=== PATIENT | male | born 1960 | race Caucasian/White ===

== ENCOUNTER → 2018-10-05 | Day surgery (SDC) | payer OTHER ==
[~2018-10-05] MED LIST: AMARYL; BENICAR40 MG; COREG25 MG PO; GLIMEPIRIDE PO; GLUCOPHAGE1000 MG PO; GLUMETZA500; LOSARTAN-HCTZ1 EAC3 PO; NORCO 5-325 TA1 EACH PO; PERCOCET 5-3251 EACH PO; TRICOR145 MG
[2018-10-05 13:54] LABS: CALCIUM 8.9 mg/dL (8.5-10.1); CREATININE 0.8 mg/dL (0.6-1.3); POTASSIUM 3.6 mmol/L (3.5-5.1)
--- NOTE | 2018-10-05 14:52 | EKG ---
[place] [address] ELECTROCARDIOGRAM REPORT Name: MILI LOU MORA Room: [facility]#: [id number] Admission: 10/05/18 Attend Phys: Merle Lala DO Discharge: Date of : 62 Report #: [id number] THIS REPORT FOR: //name// 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
--- NOTE | 2018-10-09 08:10 | OP ---
[address] [address] OPERATIVE REPORT Name: MILI LOU Room: [facility]..#: [id number] Admission: 10/05/18 Attend Phys: Merle Lala DO Discharge: Date of : 62 Report #: [id number] THIS REPORT FOR: //name// CC: Merle Cramer DATE OF SERVICE: 10/05/2018 PREPROCEDURE DIAGNOSIS: Right axillary lymphadenopathy. POSTPROCEDURE DIAGNOSIS: Right axillary lymphadenopathy. FINDINGS: Multiple large lymph nodes in the right axilla. One large lymph node was completely excised and it was approximately 5 x 3 cm. SURGEON: Merle Lala DO COSURGEON: Billy Saeed, PGY-2. INSTRUMENT TECHNOLOGIST: Cindi Valencia, PGY-1. PROCEDURE PERFORMED: Excisional biopsy, right axillary lymph node. ANESTHESIA: LMA and local. ESTIMATED BLOOD LOSS: 5. DRAINS: None. SPECIMENS: Right axillary lymph node, which was sent for fresh cultures and permanent. COMPLICATIONS: None. CONDITION: Stable. DISPOSITION: PACU to home. HISTORY OF PRESENT ILLNESS: The patient is a very pleasant 58-year-old gentleman who presented to my office with palpable right axillary lymphadenopathy. He had undergone an ultrasound, which showed multiple enlarged lymph nodes in the right axilla, the largest of which measured 5 cm. On my physical exam, I was also concerned that I could feel left axillary lymphadenopathy and possible cervical and supraclavicular lymph nodes. He denied any symptoms of night sweats, fevers or any other complaints. He was then consented for excisional biopsy of the right [place]illary [place] [address] OPERATIVE REPORT Name: MILI LOU Room: [facility]..#: [id number] Admission: 10/05/18 Attend Phys: Merle Lala DO Discharge: Date of : 62 Report #: [id number] discussed included bleeding, infection, pain, scar formation, injury to nerve, artery or vein in the area causing chronic pain, numbness or swelling, need for further surgery and risks of general anesthesia. The patient understood these risks and elected to proceed. DESCRIPTION OF PROCEDURE: The patient was brought to the operating room. He was laid supine on the operating room table. SCDs were placed on bilateral lower extremities. Ancef was given in the perioperative period. General LMA anesthesia was induced by anesthesia without difficulty. Right axilla and chest were prepped and draped in standard sterile fashion. Timeout was performed to verify patient and procedure. A 10 mL of 0.5% Marcaine were injected in the area of the planned incision. Incision was made with #15 blade. Cautery was used for hemostasis. We then gently dissected down into the right axilla using a combination of blunt and cautery dissection. A self-retaining Weitlaner retractor was placed within the wound. The pectoralis was gently retracted using an [facility]. A very large lymph node was immediately palpable just under the clavipectoral fascia. The fat surrounding the lymph node was gently elevated and the lymph node was dissected free from the surrounding tissue using blunt and cautery dissection. Once it was completely excised, it was then cut into several pieces for pathology. A small portion was sent for PMI. Larger portion was sent for cultures including fungal, Mycobacterium, aerobic and anaerobic and the remainder was sent for permanent pathology. Hemostasis was assured with our wound. The wound was then closed in a layered fashion using deep and superficial stitches of 3-0 Vicryl in inverted interrupted fashion. Skin wound was closed with a running 4-0 Monocryl. A total of 30 mL of 0.5% Marcaine were used to anesthetize the wound. Wound was then cleansed and covered with Mastisol, Steri-Strips, 4 x 4's, and a Tegaderm. The patient was then allowed to awaken from anesthesia, was extubated and transported to the recovery room with no further difficulties. Counts were correct x 2 at the conclusion of the case. <ELECTRONICALLY SIGNED> By: Merle Lala DO 10/09/18 0810 1709 [id number] Lala DO /nt
--- NOTE | 2018-10-11 13:09 | PATH ---
[address] [address] PATHOLOGY RPT PROCEDURE Name: MILI LOU Room: [facility] M.R.#: [id number] Admission: 10/05/18 Date of : 62 Discharge: Report #: [id number] Path Case #: [id number] [facility] Accession Number: [id number] . 01 Material submitted: . PERMANENT RIGHT AXILLARY LYMPH NODE . 01 Clinical history: . Pre-op diagnosis: Axillary mass Post-op diagnosis: Right axillary lymph node . 02 Diagnosis: Right axillary lymph node: - Benign lymph node with mild hyperplasia and marked fatty infiltration of hilum. See comment. (RADHA:johnny; 10/10/2018) . . Please see included Integrated Oncology report [id number]. AZJ/10/10/2018 . 02 Comment: Flow cytometry (see attached report) supports the diagnosis. Reviewed with Dr. Lico Blackburn (hematopathologist) who agrees with the diagnosis. (RADHA:johnny; 10/10/2018) . 02 Electronically signed: . Kd Marquez MD, Pathologist NPI- [id number] . 01 Gross description: . The specimen is received in formalin, labeled "Susan Mishra lymph node". Received is a segment of yellow-cespedes lobulated tissue measuring 3.1 x 2.3 x 1.7 cm in greatest dimensions. Dissection and palpation of the specimen reveals a single fatty replaced lymph node measuring approximately 2.3 cm in maximum dimensions. A portion of the specimen is received in RPMI solution and is forwarded on for flow cytometry studies. Electrical Automation Engineer sections are submitted in cassettes A1 and A2. (CAA; 10/08/2018) QAC/QAC . 02 Microscopic: . Special studies report received from [facility], [address] [place] [address], [facility] [address], [place], [place], Formerly named [facility], on case [id number], labeled with their number [id number], dated 10/09/2018. . Flow Cytometry: Hematologic [place] [address] PATHOLOGY RPT PROCEDURE Name: MILI LOU Room: [facility].R.#: [id number] Admission: 10/05/18 Date of : 62 Discharge: Report #: [id number] Path Case #: [id number] Clinical History Axillary Mass . Indication for Study Evaluation for hematolymphoid neoplasia . Specimen Lymph Node, Right Axillary . Viability 65% (7AAD exclusion) . Interpretation Lymph Node, Right Axillary: - No evidence of a B-cell or a T-cell lymphoma. See comments. - The CD4:CD8 ratio is elevated at 19:1. . Comments Increased CD4:CD8 ratios may result from various CD4+ predominant T-cell hyperplasia such as paracortical T-cell lymphoid hyperplasia and in granulomatous/histiocytic reactions, as well as some T-cell lymphoproliferative disorders or Hodgkin lymphoma. No aberrant T-cell immunophenotype or lincoln-T-cell deletion is identified in this case. The morphologic findings are more relevant than the sole flow cytometric finding of an elevated CD4/CD8 ratio. . Results should be interpreted with caution due to reduced viability of the specimen (65%). . Populations Analyzed Lymphocytes: 51% B-cells: 28.5%, polytypic/polyclonal sIg light chain pattern T-cells: no significant abnormalities of the markers tested CD4:CD8: 19.1 NK cells: 0.9% Granulocytes: 2% Present CD45 Negative 46% No significant reactivity with the markers tested Events/Debris: (may represent degenerated cells, unlysed red blood cells, debris, etc.) . Morphologic Evaluation A slide was reviewed for fiberglass quality technician purposes only. . Specimen Description Cell Yield: 0.26 X 10 and 6 Due to a low cellular viability, an average of 2,350 viable events were acquired per tube. Flow cytometry data derived from an acquisition with less than 10,000 viable events needs to be [place] [address] PATHOLOGY RPT PROCEDURE Name: CARMINEMILI VELAZCO Room: [facility].#: [id number] Admission: 10/05/18 Date of : 62 Discharge: Report #: [id number] Path Case #: [id number] of all clinical, laboratory, and morphologic data available. . Reagent(s) Used CD2, CD3, CD4, CD5, CD7, CD8, CD10, CD11b, CD19, CD20, CD23, CD30, CD38, CD43, CD45, CD56, CD57, FMC-7, HLA-DR, kappa, lambda . at [employer]. Fernando Hernandez MD Hematopathologist . Intended Use Flow cytometry is optimally used to immunophenotypically characterize abnormal populations when they are detected. Negative flow cytometry results do not exclude lymphoma or neoplasia. Possible false negative flow cytometry results may occur in, but are not limited to, the following: neoplastic cells in Hodgkin lymphoma are not typically adequately represented by routine clinical flow cytometry; neoplastic cells may be lost or inadequately represented due to degeneration, sample processing, sampling artifact, or patchy involvement; plasma cells are typically underrepresented by flow cytometry; immature cells/blasts may be underrepresented due to hemodilution; myeloproliferative disorders and low grade myelodysplasia may not have immunophenotypic abnormalities or increased blasts. Correlation with all available clinical, laboratory, and morphologic data is always necessary to assess for the possibility of false negative flow cytometry results and to establish a diagnosis. Each marker in this analysis was used to assess for potential antigenic abnormalities or to evaluate detected abnormalities. . Disclaimer(s) This test was performed at [facility]. at [address] [place] [address], [place], [phone] - Machine I Coremaker: Jason Serrano MD. [employer] is a business unit of [employer] a wholly-owned subsidiary of [employer]. . Any image or images that accompany this report are u.s. representative images only and should not be used to render a diagnosis. . This test was developed and its performance characteristics determined by [facility]. It has not been cleared or approved by the Food and Drug Administration (FDA). The FDA has determined that such clearance or approval is not necessary. . For inquiries, the physician may contact Lab: [phone] . A complete copy of the [place] [address] PATHOLOGY RPT PROCEDURE Name: MILI LOU Room: [facility]..#: [id number] Admission: 10/05/18 Date of : 62 Discharge: Report #: [id number] Path Case #: [id number] Professional services performed by [employer]. at [address], [place] [address]. Technical services performed by [employer]. at [address], [place] [address]. . (AM[facility] 10/09/2018) . . 02 Pathologist provided ICD-10: R59.0 . 02 CPT . 878491 Specimen Comment: A courtesy copy of this report has been sent to Specimen Comment: [phone], . Specimen Comment: Report sent to / DR CLEARY Specimen Comment: A duplicate report has been generated due to demographic updates. Performed at: 01 [facility] [address], [place], [place] [id number] MD Anhtony Garcia MD Phone: [phone] Performed at: 02 [facility] [address], [place], [place] [id number] MD Kd Marquez MD Phone: [phone]
== END | disposition home or self-care (01) ==
LOC: M.SUR 06:56
PROVIDERS: Surgery
DX: R59.0 Localized enlarged lymph nodes (principal); Z79.01 Long term (current) use of anticoagulants; Z79.899 Other long term (current) drug therapy; Z98.890 Other specified postprocedural states